=== PATIENT | male | born 1980 | race African-American/Black ===

== ENCOUNTER 2019-10-23 08:04 | Outpatient (CLI) | payer BC ==
--- NOTE | 2019-10-23 08:33 | RAD ---
EXAM: XR Sinuses Ramirez View Only PROVIDED CLINICAL HISTORY: History of metal in the eye, MRI clearance COMPARISON: None FINDINGS: There is no evidence for metallic foreign body in the region of the orbits. IMPRESSION: As above.
--- NOTE | 2019-10-23 09:26 | MRI ---
MRI Upper Ext Jt Rt WO Con History: Rotator cuff syndrome of right shoulder Comparison: None. Findings: Biceps tendon: Extra-articular biceps tendon is normal. Mild intra-articular tendinosis. Labrum: Intact Rotator cuff: Moderate tendinosis and mild interstitial tearing of the superior fibers subscapularis. 30-40% bursal surface tear anterior 1 cm fibers supraspinatus tendon which becomes a hidden interstit ial tear at the footprint involving 80-90% of the footprint width posterior one half fibers supraspinatus tendon. There is propagation of the hidden footprint tear into the infraspinatus footpr int although this only involves 30-40% footprint width throughout the entire tendon. Bones: Type III acromion with narrowed subacromial space. Age-appropriate appearance of the acromiocl avicular joint. Normal glenoid version. Narrowed subacromial space. Muscles: Muscle signal and bulk is normal. Soft tissues: Small subacromial subdeltoid bursa effusion. Normal volume of joint fluid. Normal appea kenton of the subcoracoid fat triangle. Cartilage: Intact. No full-thickness chondral defect. Impression: 1. 30-40% bursal surface footprint tear anterior leading edge 1 cm fibers supraspinatus tendon which becomes a hidden interstitial tear at the footprint involving 80-90% of the footprint width remaining posterior fibers. 2. Propagation of the hidden interstitial footprint tear into the entire infraspinatus tendon althoug h this only involves 30-40% of the footprint width. 3. Type III acromion with narrowed subacromial space. 4. Moderate subcoracoid space narrowing with associated tendinosis and interstitial tearing of the lewis perior fibers subscapularis tendon. No full-thickness perforation. 5. Intact labrum. 6. No muscle atrophy.
== END 2019-10-23 08:05 | disposition home or self-care (01) ==
LOC: BICMRI 08:04
PROVIDERS: ATTEND Emergency Medicine Sports Medicine
DX: M75.101 Unspecified rotator cuff tear or rupture of right shoulder, not specified as traumatic (principal); S46.811A Strain of other muscles, fascia and tendons at shoulder and upper arm level, right arm, initial encounter; M25.811 Other specified joint disorders, right shoulder
CPT/HCPCS: 70210